=== PATIENT | male | born 1955 | race Caucasian/White ===

== ENCOUNTER 2019-10-22 22:03 | Inpatient (IN) | payer OTHER ==
[~2019-10-22] VITALS: Ht 167.6 cm; Wt 73.5 kg
[2019-10-23 01:44] LABS: microscopic required? NO
[2019-10-23 01:51] LABS: UA SPECIFIC GRAVITY 1.025 (1.005-1.035); urine erythrocyte NEGATIVE (NEGATIVE)
[2019-10-23 02:16] LABS: BASOPHIL % 0.7 % (0-2); PLATELET COUNT 275 x10^3mcL (130-400); RED CELL DISTRIBUTION WIDTH 12.7 % (11.5-14.5)
[2019-10-23 02:27] LABS: BILIRUBIN TOTAL 0.45 mg/dL (0.20-1.00); CALCIUM 8.7 mg/dL (8.5-10.1); CARBON DIOXIDE 29.4 mmol/L (21-32); CHOLESTEROL/HDL RATIO 3.3; CREATININE SERUM 1.5 mg/dL (0.7-1.3); POTASSIUM SERUM 5.5 mmol/L (3.5-5.1); TOTAL PROTEIN, SERUM 7.6 g/dL (6.4-8.2)
--- NOTE | 2019-10-23 02:54 | NUR ---
PT SITTING IN [facility], AAO4, NO DISTRESS.
--- NOTE | 2019-10-23 03:40 | NUR ---
RECEIVED REPORT FROM EDUIN GUERRERO TO ASSUME PT CARE. PT MOVED FROM H2 TO T1. PT PLACED ON FULL MANAGER AVIATION. BREATHING E/U, NO S/S OF DISTRESS NOTED
--- NOTE | 2019-10-23 03:42 | NUR ---
PT TO ED WITH C/O RLQ ABDOMINAL PAIN SINCE THURSDAY. PT REPORTS PAIN UPON URINATION AND HE SAW PCP ABOUT SYMPTOMS, PCP GAVE RX FOR FLOMAX WITH NO RELIEF. PT REPORTS PAIN RADIATES TO RIGHT LOWER BACK. PT DENIES N/V/D/C, FEVER, COUGH, SICK CONTACTS, AND SOB AT THIS TIME. PT IS A&OX4, BREATHING E/U, NO S/S OF DISTRESS NOTED. PT ON FULL STARCHMAKER, VITAL SIGNS STABLE.
--- NOTE | 2019-10-23 03:51 | NUR ---
PT IS REPORTING RLQ PAIN AT THIS TIME THAT RADIATES TO RIGHT LOWER BACK. PT RATES PAIN 4/10. WILL MEDICATE PER EMAR.
--- NOTE | 2019-10-23 03:58 | NUR ---
RT AT BEDSIDE FOR ABG
[2019-10-23] MEDS ORDERED: FLOMAX0.4 MG PO (04:24)
[2019-10-23] MEDS ORDERED: FORTAMET500 M1 (04:24)
[2019-10-23] MEDS ORDERED: SIMVASTATIN20 M1 (04:25)
[2019-10-23] MEDS ORDERED: ZESTRIL10 MG (04:25)
--- NOTE | 2019-10-23 04:27 | NUR ---
PT RECEIVED A WARM BLANKET FOR COMFORT. PT REMAINS ON FULL PIT HAND. PT A&OX4, BREATHING E/U, NO S/S OF ACUTE DISTRESS NOTED.
--- NOTE | 2019-10-23 05:21 | NUR ---
PT REQUESTING A URINAL AT THIS TIME. PT IS AWAKE AND ALERT, NO S/S OF DISTRESS NOTED. PT BREATHING E/U. PT DENIES PAIN AT THIS TIME. PT REPORTS "I FEEL GOOD". 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
--- NOTE | 2019-10-23 05:37 | NUR ---
PT REQUESTING GLASSES FROM BELONGINGS BAG AND FOR ASSISTANCE REPOSITIONING IN BED. PT REPORTS HE IS "COMFORTABLE". NO S/S OF DISTRESS NOTED.
--- NOTE | 2019-10-23 07:12 | NUR ---
RECEIVED REPORT FROM GLADIS DENNY
--- NOTE | 2019-10-23 07:22 | NUR ---
REPORT GIVEN TO EDUIN RAMOS TO ASSUME PT CARE. ALL QUESTIONS AND CONCERNS ANSWERED AT THIS TIME.
--- NOTE | 2019-10-23 07:46 | NUR ---
PT SITTING UP IN BED EATING BREAKFAST, AAOX4, NO ACUTE DISTRESS NOTED, DENIES PAIN, SAFETY PRECAUTIONS IN PLACE, CALL LIGHT WITHIN REACH, WILL CONTINUE TO MONITOR.
--- NOTE | 2019-10-23 07:48 | NUR ---
CORRECTION TO BELONGINGS LIST, PT STATES HE DOES WEAR READING GLASSES AND FULL DENTURES,
--- NOTE | 2019-10-23 08:04 | NUR ---
PAGED RESIDENT CRISTOFER, FOR CMP LAB ORDER TO RE-CHECK POTASSIUM,
--- NOTE | 2019-10-23 08:04 | NUR ---
LAB AT BEDSIDE
[2019-10-23 08:42] LABS: MAGNESIUM 2.3 mg/dL (1.8-2.4); PHOSPHOROUS 3.9 mg/dL (2.5-4.9)
--- NOTE | 2019-10-23 09:23 | NUR ---
REPORT GIVEN TO DEISY NARAYAN RN
--- NOTE | 2019-10-23 09:49 | NUR ---
RECEIVED PT FROM ER. PT DENIES PAIN AT THIS TIME. VS: HR 55, RR 16 BP 155/89, TEMP 97.9, AND SAO2 97% ON RA. PT AMBULATORY AT THIS TIME. SAFETY PRECAUTIONS IN PLACE. WILL ASSESS FURTHER AND CONTINUE TO MONITOR.
[2019-10-23 12:30] VITALS: BP 152/69
[2019-10-23 13:47] LABS: ALBUMIN 3.4 g/dL (3.4-5.0); BILIRUBIN TOTAL 0.38 mg/dL (0.20-1.00); CALCIUM 8.4 mg/dL (8.5-10.1); CARBON DIOXIDE 25.9 mmol/L (21-32); CREATININE SERUM 1.5 mg/dL (0.7-1.3); POTASSIUM SERUM 4.6 mmol/L (3.5-5.1); TOTAL PROTEIN, SERUM 6.7 g/dL (6.4-8.2)
[2019-10-23 16:40] VITALS: BP 157/71
--- NOTE | 2019-10-23 19:30 | NUR ---
PT IS NPO AFTER MIDNIGHT AWAITING LITHOTRIPSY PROCEDURE. PT C/O PAIN @1500. SHE WAS GIVEN NORCO AND TYLENOL AND THESE WERE EFFECTIVE. PAIN LEVEL DECREASED TO 2/10. IV SITE WNL AND INFUSING NS. HE IS AAOX4. CURRENTLY RESTING COMFORTABLY. SAFETY PRECAUTIONS IN PLACE. ENDORSED TO NIGHT NURSE.
--- NOTE | 2019-10-23 19:45 | NUR ---
RECEIVED REPORT FROM DAY SHIFT RN. PT RESTING IN BED. AA&O X4. NO SOB ON ROOM AIR. NO C/O CHEST PAIN. DENIES N/V. VOIDS FREELY. WILL STRAIN URINE FOR CALCULUS PER ORDER. IV TO RAC, NS INFUSING. SAFETY MEASURES IN PLACE. DEMONSTRATED HOW TO CALL FOR ASSISTANCE. CALL LIGHT WITHIN REACH.
[2019-10-23 20:18] VITALS: BP 155/89
[2019-10-23 20:46] VITALS: BP 111/57
--- NOTE | 2019-10-23 22:59 | NUR ---
PT ASKED FOR TYLENOL FOR RT FLANK PAIN 5/10. GIVEN PER ORDER.
--- NOTE | 2019-10-24 01:35 | NUR ---
PT C/O RT FLANK PAIN AFTER GETTING UP TO GO TO THE BATHROOM 09/13. NORCO GIVEN.
[2019-10-24 06:03] VITALS: BP 129/57
[2019-10-24 07:29] LABS: CALCIUM 8.3 mg/dL (8.5-10.1); CARBON DIOXIDE 23.4 mmol/L (21-32); CHLORIDE SERUM 104 mmol/L (98-107); CREATININE SERUM 1.2 mg/dL (0.7-1.3); GFR1 > 60 mL/min; GLUCOSE SERUM 114 mg/dL (74-106); PHOSPHOROUS 3.2 mg/dL (2.5-4.9); POTASSIUM SERUM 4.6 mmol/L (3.5-5.1); SODIUM SERUM 137 mmol/L (136-145)
[2019-10-24 07:57] LABS: BASOPHIL % 0.6 % (0-2); PLATELET COUNT 216 x10^3mcL (130-400); RED CELL DISTRIBUTION WIDTH 13.4 % (11.5-14.5)
--- NOTE | 2019-10-24 08:05 | NUR ---
PT RESTED IN LONG INTERVALS DURING SHIFT. NO SOB ON ROOM AIR. C/O RT FLANK PAIN X2. NORCO AND TYLENOL GIVEN. NPO FOR PROCEDURE TODAY. CHECKLIST STARTED. SAFETY MEASURES MAINTAINED. CALL LIGHT WITHIN REACH. ENDORSED TO DAY SHIFT RN.
[2019-10-24 09:00] VITALS: BP 138/61
[2019-10-24 13:32] VITALS: BP 158/75
--- NOTE | 2019-10-24 16:20 | NUR ---
1157 Pt left for procedure via rhenlawson Alert and oriented times 4. Pt left with stable VS. NPO maintained as ordered. .
--- NOTE | 2019-10-24 16:41 | NUR ---
1245 Received report pt returning from procedure in stable condition. Per reports, procedure (Cystoscopy) went successfully. Nurse returned from Lunch break at 1330 received pt in bed alert and oriented times 4. Pt informed nurse he was in a lot of pain after the procedure but he feels much better now. Pt returned from procedure with stent protruding the penis. Penis appear normal. No active bleeding noted and no old blood noted around the penis. Pt informed nurse he has already voided 3 times with blood in the first 2 voids but no blood at the last void. Nurse instructed pt not to pull on the stent protruding penis until he sees his kidney doctor-Pt verbalized understanding and agreed not to pull on the stent. Nurse instructed pt to informed nurse for any changes in condition and pt agreed with the plan. Will continue to monitor pt.
[2019-10-24 17:58] VITALS: BP 155/75
--- NOTE | 2019-10-24 19:03 | NUR ---
Pt currently in bed alert and oriented times 4. Pt reported constipation which was reported to Dr Alvarez. MD ordered dulcolax supp and its was given as ordered. Pt tolerated dulcolax supp very well. One dose of [place] given for pain this shift. Instructed pt on pain med and encourage not to wait for pain to become intense before requesting for pain med and pt verbalized understanding. Pt void per urinal. 1700 emptied 300ml pinkish urine. Pt aware to reports any changes to his nurse. Pt stable at this time. Will endorse care to oncoming shift RN.
--- NOTE | 2019-10-24 19:30 | NUR ---
RECEIVED PATIENT REPORT FROM CORN MILLER. PATIENT IS AAOX4, DENIES BLEVINS/DIZINESS. BREATHING EVEN/UNLABORED ON RA WITH NO SOB NOTED. MED SURG PT, DENIES CHEST PAIN/PRESSURE. IV RFA PATENT INFUSING WELL WITH NO SIGNS OF INFILTRATION. PATIENT USES URINAL AT BEDSIDE WITH DARK SARA/PINK COLOR URINE OUTPUT. PT DENIES PAIN. CALL BUTTON WITHIN REACH. SAFETY PRECAUTIONS IN PLACE. WILL MONITOR.
[2019-10-24 20:51] VITALS: BP 143/61
--- NOTE | 2019-10-25 02:47 | NUR ---
PATIENT REQUESTING FOR TYLENOL FOR BLEVINS. MEDICATED PER EMAR. ALL SAFETY PRECAUTIONS IN PLACE. WILL MONITOR.
[2019-10-25 04:13] VITALS: BP 101/73
--- NOTE | 2019-10-25 06:28 | NUR ---
PATIENT SLEPT ON AND OFF TROUGHOUT THE NIGHT WITH NO ACUTE DISTRESS. PATIENT DENIES PAIN. UNLABORED BREATHING ON RA. IV RFA PATENT, INFUSING WELL WITH NO SIGNS OF INFILTRATION. PATIENT USES URINA AND BRP. PATIENT URINE COLOR OUTPUT IS DARK SARA. PATIENT AMBULATORY. PATIENT ABLE TO TURN AND REPOSITIONED. ALL NEEDS MET. MEDICATED PER EMAR. CALL BUTTON WITHIN REACH. SAFETY PRECAUTIONS IN PLACE. WILL CONTINUE TO MONITOR.
--- NOTE | 2019-10-25 07:38 | NUR ---
PATIENT IN NO DISTRESS. ENDORSED CARE TO DAY SHIFT RN.
[2019-10-25 09:30] VITALS: BP 131/61
[2019-10-25] MEDS ORDERED: CIPRO500 MG PO (11:05)
[2019-10-25] MEDS ORDERED: FLO4 PO (11:06)
[2019-10-25 13:09] VITALS: BP 131/61
--- NOTE | 2019-10-25 13:55 | NUR ---
(UROLOGIST)IN AND SEEN PT, PER IN HIS STANDPOINT PT CAN BE DISCHARGE HOME . CALLED AND SPOKE TO MADHU(N.P.) AND MADE HER AWARE OF ABOVE. NEW ORDER RECEIVED FROM MADHU AND SAYS OKAY TO D/C HOME TODAY.
--- NOTE | 2019-10-25 16:37 | NUR ---
PATIENT ALREADY DRESS AND READY TO GO, REMOVED IV TO RAC, CATH INTACT, NO REDNESS NOTED. GAUZES APPLY TO SITE. PT'S STABLE, NO C/O PAIN. WALKING PATIENT DOWN TO D/C DATA PROCESSING CONSULTANT DEPT. CHUA WILL ASSIST PT. ALL BELONGINGS WITH PATIENT.
== END 2019-10-25 16:39 | disposition home or self-care (01) | DRG 661 ==
LOC: ED 22:03 → MU 10-23 03:19 → DU 10-23 03:19 → MU 10-23 12:22
PROVIDERS: Specialist; Urology; ADMIT Internal Medicine; ATTEND Internal Medicine
PROC: 0T768DZ Dilation of Right Ureter with Intraluminal Device, Via Natural or Artificial Opening Endoscopic (ICD-10-PCS; 2019-10-24)
PROC: 0TC68ZZ Extirpation of Matter from Right Ureter, Via Natural or Artificial Opening Endoscopic (ICD-10-PCS; 2019-10-24)
PROC: BT1D1ZZ Fluoroscopy of Right Kidney, Ureter and Bladder using Low Osmolar Contrast (ICD-10-PCS; principal; 2019-10-24 11:00)
DX: N13.30 Unspecified hydronephrosis (principal); N17.0 Acute kidney failure with tubular necrosis; N23 Unspecified renal colic; E87.5 Hyperkalemia; N40.0 Benign prostatic hyperplasia without lower urinary tract symptoms; E11.9 Type 2 diabetes mellitus without complications; E78.5 Hyperlipidemia, unspecified; E78.00 Pure hypercholesterolemia, unspecified; Z79.899 Other long term (current) drug therapy
CPT/HCPCS: 36600; 82962; 83880; C1769; C2625; G0378; J0696; J1170; J1815; J1885; J3010; J3490; J7030; Q0092; Q9967

== ENCOUNTER 2020-03-18 15:38 | Emergency (ER) | payer OTHER, SELFPAY ==
[~2020-03-18] VITALS: Ht 167.6 cm; Wt 74.4 kg
[~2020-03-18 15:38] MED LIST: CIPRO500 MG PO; FLO4 PO; FLOMAX0.4 MG PO; FORTAMET500 M1; SIMVASTATIN20 M1; ZESTRIL10 MG
[2020-03-18 18:04] VITALS: Ht 167.6 cm; Wt 74.4 kg
[2020-03-18 19:07] LABS: BASOPHIL % 0.2 % (0.2-1.5); PLATELET COUNT 453 x10^3mcL (152-348); RED CELL DISTRIBUTION WIDTH 14.2 % (12.1-16.2)
[2020-03-18 20:41] VITALS: BP 102/57
[2020-03-18 21:24] LABS: ALKALINE PHOSPHATASE 78 U/L (46-116); ALT/SGPT 36 U/L (16-63); AST/SGOT 31 U/L (15-37); BILIRUBIN TOTAL 0.4 mg/dL (0.20-1.00); CALCIUM 8.8 mg/dL (8.5-10.1); CARBON DIOXIDE 21.1 mmol/L (21-32); CHLORIDE SERUM 96 mmol/L (98-107); CHOLESTEROL 140 mg/dL (<200); CREATININE SERUM 0.8 mg/dL (0.7-1.3); GFR1 > 60 mL/min; GLUCOSE SERUM 94 mg/dL (74-106); HDL CHOLESTEROL 54 mg/dL (40-60); PHOSPHOROUS 3.6 mg/dL (2.5-4.9); SODIUM SERUM 131 mmol/L (136-145); URIC ACID 3.9 mg/dL (3.5-7.2)
[2020-03-18 21:39] LABS: ALBUMIN 2.9 g/dL (3.4-5.0)
== END 2020-03-18 20:41 | disposition home or self-care (01) ==
LOC: ED 15:38
PROVIDERS: Emergency Medicine
DX: U07.1 COVID-19 (principal); R55 Syncope and collapse; I10 Essential (primary) hypertension; E11.9 Type 2 diabetes mellitus without complications; E78.00 Pure hypercholesterolemia, unspecified